=== PATIENT | male | born 1980 | race Caucasian/White ===

== ENCOUNTER 2017-06-13 06:04 | Inpatient (IN) | payer OTHER ==
[2017-06-13] VITALS (17 sets, daily range): BP systolic 103–148; BP diastolic 68–107
[~2017-06-13] VITALS: Ht 152.4 cm; Wt 56.7 kg
[~2017-06-13 06:04] MED LIST: BUPROPION; HCTZ PO; LOPRESSOR
[2017-06-13 06:40] LABS: ABSOLUTE BASOPHILS 0.1 thou/uL (0.0-0.2); ABSOLUTE LYMPHOCYTES 1.6 thou/uL (0.8-5.3); ABSOLUTE MONOCYTES 0.5 thou/uL (0.0-1.2); ABSOLUTE NEUTROPHILS 8.6 thou/uL (1.6-8.1); BASOPHILS 1.1 %; EOSINOPHILS 0.5 %; HEMATOCRIT 46.9 % (42.0-52.0); HEMOGLOBIN 15.6 gm/dL (14.0-18.0); LYMPHOCYTES 14.9 %; MCH 29.4 pg (26.0-34.0); MCHC 33.2 g/dL (28.0-37.0); MCV 88.5 fL (80.0-100.0); MONOCYTES 4.8 %; MPV 8.7 fl. (7.2-11.1); NUCLEATED RBCS 0 /100WBC; PLATELET COUNT* 437 thou/uL (150-400); POLYS 78.7 %; RBC 5.29 mil/uL (4.50-6.00); RDW-CV 12.5 % (10.5-14.5)
[2017-06-13 06:57] LABS: ALBUMIN 3.8 g/dL (3.4-5.0); ALKALINE PHOSPHATASE 118 U/L (46-116); AMYLASE 372 U/L (25-115); ANION GAP 18 mmol/L (7-16); BUN 24 mg/dL (7-18); CALCIUM 9.6 mg/dL (8.5-10.1); CHLORIDE 84 mmol/L (98-107); CO2 22 mmol/L (21-32); CREATININE 1.3 mg/dL (0.6-1.3); MAGNESIUM 1.8 mg/dL (1.8-2.4); POTASSIUM 4.4 mmol/L (3.5-5.1); SGOT 30 U/L (15-37); SGPT 52 U/L (30-65); SODIUM 124 mmol/L (136-145); TOTAL BILIRUBIN 0.4 mg/dL (<0.1-1.0); TOTAL PROTEIN 7.8 g/dL (6.4-8.2); TROPONIN-I LEVEL <0.06 ng/mL (<0.06)
[2017-06-13 07:08] LABS: LIPASE 6987 U/L (73-393)
[2017-06-13 07:10] LABS: GLUCOSE 888 mg/dL (70-99)
[2017-06-13 07:25] LABS: BE -7.6 mmol/L (-2 to +3); pH 7.541 (7.340-7.450)
[2017-06-13 07:26] LABS: SALICYLATE 3.4 mg/dL (2.8-20.0)
[2017-06-13 07:26] LABS: HCO3 11.1 mmol/L (22.0-26.0); PCO2 < 17.0 mmHg (35.0-45.0); PO2 125.9 mmHg (75.0-100.0)
[2017-06-13 07:29] LABS: ACETAMINOPHEN < 2 ug/mL (10-30); ALCOHOL < 10 mg/dL (<10)
[2017-06-13 07:41] LABS: AMP/METHAMP POSITIVE (Negative); BARBITURATES Negative (Negative); BENZODIAZEPINES Negative (Negative); COCAINE Negative (Negative); METHADONE Negative (Negative); OPIATES POSITIVE (Negative); PCP Negative (Negative); THC Negative (Negative); URINE BLOOD NEGATIVE (Negative); URINE CLARITY CLEAR; URINE COLOR YELLOW; URINE GLUCOSE-RANDOM 3+ (Negative); URINE LEUKOCYTES-REFLEX NEGATIVE (Negative); URINE NITRITE-REFLEX NEGATIVE (Negative); URINE PROTEIN NEGATIVE (Negative); URINE SPECIFIC GRAVITY <= 1.005 (1.005-1.030); URINE UROBILINOGEN 0.2 E.U./dl (0.2-1.0)
[2017-06-13 07:42] LABS: URINE KETONES 3+ (Negative)
[2017-06-13 07:44] LABS: ACETEST (KETONE CONFIRMATORY) Large (Negative); URINE BILIRUBIN NEGATIVE (Negative)
[2017-06-13 09:05] LABS: ABSOLUTE BASOPHILS 0.1 thou/uL (0.0-0.2); ABSOLUTE LYMPHOCYTES 1.5 thou/uL (0.8-5.3); ABSOLUTE MONOCYTES 0.4 thou/uL (0.0-1.2); ABSOLUTE NEUTROPHILS 6.4 thou/uL (1.6-8.1); BASOPHILS 0.7 %; EOSINOPHILS 0.3 %; HEMATOCRIT 40.4 % (42.0-52.0); HEMOGLOBIN 13.8 gm/dL (14.0-18.0); LYMPHOCYTES 18.1 %; MCH 29.4 pg (26.0-34.0); MCHC 34.2 g/dL (28.0-37.0); MCV 85.9 fL (80.0-100.0); MONOCYTES 4.8 %; MPV 8.4 fl. (7.2-11.1); NUCLEATED RBCS 0 /100WBC; PLATELET COUNT* 375 thou/uL (150-400); POLYS 76.1 %; WBC 8.4 thou/uL (4.0-11.0)
[2017-06-13 09:22] LABS: ALBUMIN 3.1 g/dL (3.4-5.0); CALCIUM 7.8 mg/dL (8.5-10.1); CREATININE 1.1 mg/dL (0.6-1.3); MAGNESIUM 1.4 mg/dL (1.8-2.4); PHOSPHORUS* 3.1 mg/dL (2.5-4.9); POTASSIUM 4.5 mmol/L (3.5-5.1)
--- NOTE | 2017-06-13 11:06 | EKG ---
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: [place] : 1980 Requested By: Rene Nichols Order Number: [id number] : Luciano Garcia Measurements Intervals [place] Rate: 80 P: 77 FL: 148 QRS: 57 QRSD: 86 T: 72 QT: 387 QTc: 447 Interpretive Statements Sinus arrhythmia Probable left atrial enlargement Compared to ECG 09/01/2010 17:43:57 Sinus rhythm no longer present Electronically Signed On 06-13-2017 11:06:28 PRODUCT DEVELOPMENT COORDINATOR by Luciano Garcia [email or web address] <ELECTRONICALLY SIGNED> By: Luciano Garcia MD, [facility] 06/13/17 1106 0735 [id number] Luciano Garcia MD, [facility] /EPI
[2017-06-13 13:55] LABS: CALCIUM 7.8 mg/dL (8.5-10.1); CREATININE 0.8 mg/dL (0.6-1.3); POTASSIUM 3.6 mmol/L (3.5-5.1)
[2017-06-13 13:58] LABS: ALBUMIN 2.9 g/dL (3.4-5.0); MAGNESIUM 1.6 mg/dL (1.8-2.4); PHOSPHORUS* 4.1 mg/dL (2.5-4.9)
[2017-06-13 16:08] LABS: INFLUENZA A ANTIGEN None Detected (None Detect)
[2017-06-13 16:09] LABS: INFLUENZA B ANTIGEN None Detected (None Detect)
[2017-06-13 16:24] LABS: HDL CHOLESTEROL 50 mg/dL (>40); TRIGLYCERIDE 257 mg/dL (<150)
[2017-06-13 17:12] LABS: CREATININE 0.8 mg/dL (0.6-1.3); POTASSIUM 4.1 mmol/L (3.5-5.1)
[2017-06-13 17:15] LABS: ALBUMIN 2.9 g/dL (3.4-5.0); MAGNESIUM 2.2 mg/dL (1.8-2.4); PHOSPHORUS* 4.1 mg/dL (2.5-4.9)
[2017-06-13 20:55] LABS: CALCIUM 7.4 mg/dL (8.5-10.1); CREATININE 0.8 mg/dL (0.6-1.3); POTASSIUM 4.2 mmol/L (3.5-5.1)
[2017-06-13 21:11] LABS: GLYCOHEMOGLOBIN (HGB A1C) 15.3 % (4.8-5.6)
[2017-06-13 22:12] LABS: LDL (DIRECT) CHOL 77 mg/dL (0-99)
[2017-06-14] VITALS (19 sets, daily range): BP systolic 90–113; BP diastolic 54–79
[2017-06-14 01:32] LABS: CALCIUM 7.1 mg/dL (8.5-10.1); CREATININE 0.7 mg/dL (0.6-1.3); POTASSIUM 4.2 mmol/L (3.5-5.1)
[2017-06-14 04:49] LABS: BE -4.7 mmol/L (-2 to +3); HCO3 20.4 mmol/L (22.0-26.0); PCO2 38.2 mmHg (35.0-45.0); PO2 101.8 mmHg (75.0-100.0); pH 7.346 (7.340-7.450)
[2017-06-14 05:22] LABS: HEMATOCRIT 37.8 % (42.0-52.0); HEMOGLOBIN 12.6 gm/dL (14.0-18.0); MCH 28.8 pg (26.0-34.0); MCHC 33.3 g/dL (28.0-37.0); MCV 86.6 fL (80.0-100.0); MPV 8.2 fl. (7.2-11.1); RBC 4.37 mil/uL (4.50-6.00); RDW-CV 12.8 % (10.5-14.5); WBC 7.1 thou/uL (4.0-11.0)
[2017-06-14 05:56] LABS: ALBUMIN 2.2 g/dL (3.4-5.0); CALCIUM 6.8 mg/dL (8.5-10.1); CREATININE 0.7 mg/dL (0.6-1.3); MAGNESIUM 1.7 mg/dL (1.8-2.4); TOTAL BILIRUBIN 0.2 mg/dL (<0.1-1.0); TOTAL PROTEIN 4.5 g/dL (6.4-8.2)
[2017-06-14 05:58] LABS: POTASSIUM 6.1 mmol/L (3.5-5.1)
[2017-06-14 09:38] LABS: ALBUMIN 2.5 g/dL (3.4-5.0); CALCIUM 7.5 mg/dL (8.5-10.1); CREATININE 0.7 mg/dL (0.6-1.3); MAGNESIUM 1.8 mg/dL (1.8-2.4); PHOSPHORUS* 2.9 mg/dL (2.5-4.9)
[2017-06-14 09:41] LABS: POTASSIUM 4.3 mmol/L (3.5-5.1)
[2017-06-14 13:02] LABS: ALBUMIN 2.3 g/dL (3.4-5.0); CALCIUM 7.5 mg/dL (8.5-10.1); CREATININE 0.6 mg/dL (0.6-1.3); MAGNESIUM 2.5 mg/dL (1.8-2.4); POTASSIUM 4.3 mmol/L (3.5-5.1)
[2017-06-15] VITALS (8 sets, daily range): BP systolic 85–112; BP diastolic 58–70
[2017-06-15 05:09] LABS: HEMATOCRIT 36.3 % (42.0-52.0); HEMOGLOBIN 12.6 gm/dL (14.0-18.0); MCH 29.5 pg (26.0-34.0); MCHC 34.6 g/dL (28.0-37.0); MPV 8.5 fl. (7.2-11.1); RBC 4.27 mil/uL (4.50-6.00); RDW-CV 12.4 % (10.5-14.5); WBC 6.2 thou/uL (4.0-11.0)
[2017-06-15 05:46] LABS: ALKALINE PHOSPHATASE 57 U/L (46-116); ANION GAP 6 mmol/L (7-16); BUN 6 mg/dL (7-18); CALCIUM 7.6 mg/dL (8.5-10.1); CHLORIDE 107 mmol/L (98-107); CHOLESTEROL 82 mg/dL (<200); CO2 27 mmol/L (21-32); CREATININE 0.6 mg/dL (0.6-1.3); GLUCOSE 69 mg/dL (70-99); HDL CHOLESTEROL 35 mg/dL (>40); LDL CHOLESTEROL 41 mg/dL (<100); LIPASE 1210 U/L (73-393); MAGNESIUM 1.7 mg/dL (1.8-2.4); POTASSIUM 3.6 mmol/L (3.5-5.1); SGOT 36 U/L (15-37); SGPT 39 U/L (30-65); SODIUM 140 mmol/L (136-145); TC:HDL 2.3 Ratio (Not establshd); TOTAL BILIRUBIN 0.1 mg/dL (<0.1-1.0); TOTAL PROTEIN 4.7 g/dL (6.4-8.2); TRIGLYCERIDE 31 mg/dL (<150); VLDL 6 mg/dL (<40)
[2017-06-15 05:48] LABS: SERUM ASSESSMENT Clear
[2017-06-16] VITALS: BP 106/66
[2017-06-16 03:57] LABS: ABSOLUTE BASOPHILS 0.1 thou/uL (0.0-0.2); ABSOLUTE EOSINOPHILS 0.1 thou/uL (0.0-0.7); ABSOLUTE MONOCYTES 0.5 thou/uL (0.0-1.2); ABSOLUTE NEUTROPHILS 2.8 thou/uL (1.6-8.1); BASOPHILS 0.8 %; EOSINOPHILS 1.9 %; HEMATOCRIT 37.1 % (42.0-52.0); HEMOGLOBIN 12.5 gm/dL (14.0-18.0); LYMPHOCYTES 46.4 %; MCH 29.1 pg (26.0-34.0); MCHC 33.7 g/dL (28.0-37.0); MCV 86.4 fL (80.0-100.0); MONOCYTES 7.1 %; MPV 8.4 fl. (7.2-11.1); NUCLEATED RBCS 0 /100WBC; PLATELET COUNT* 327 thou/uL (150-400); POLYS 43.8 %; RBC 4.29 mil/uL (4.50-6.00); RDW-CV 12.7 % (10.5-14.5); WBC 6.4 thou/uL (4.0-11.0)
[2017-06-16 04:00] VITALS: BP 100/60
[2017-06-16 04:18] LABS: PREALBUMIN 13.4 mg/dL (18.0-35.7)
[2017-06-16 04:19] LABS: ALBUMIN 2.1 g/dL (3.4-5.0); ALKALINE PHOSPHATASE 53 U/L (46-116); ANION GAP 3 mmol/L (7-16); BUN 11 mg/dL (7-18); CALCIUM 7.9 mg/dL (8.5-10.1); CHLORIDE 106 mmol/L (98-107); CO2 30 mmol/L (21-32); CREATININE 0.7 mg/dL (0.6-1.3); GLUCOSE 147 mg/dL (70-99); LIPASE 761 U/L (73-393); MAGNESIUM 1.5 mg/dL (1.8-2.4); POTASSIUM 3.8 mmol/L (3.5-5.1); SGOT 34 U/L (15-37); SGPT 46 U/L (30-65); SODIUM 139 mmol/L (136-145); TOTAL PROTEIN 4.8 g/dL (6.4-8.2)
[2017-06-16 04:21] LABS: TOTAL BILIRUBIN < 0.1 mg/dL (<0.1-1.0)
[2017-06-16 08:00] VITALS: BP 88/58
[2017-06-16 10:43] VITALS: BP 88/58
[2017-06-16] MEDS ORDERED: HUMULIN R100 UNIT/M SUBQ ×2 (13:51→13:54)
[2017-06-16 13:55] VITALS: BP 106/67
[2017-06-16 14:07] VITALS: BP 114/73
--- NOTE | 2017-07-14 14:50 | CON ---
[address] [address] CONSULTATION Name: GARTH MEDINA Room: [address]#: [id number] Admission: 06/13/17 Attend Phys: Nona Hernandez MD Discharge: 06/16/17 Date of : 78 Report #: [id number] THIS REPORT FOR: //name// CC: [facility] physician/PCP Nona Hernandez DICTATED BY: Nel Tang [facility] DATE OF SERVICE: 06/14/2017 The patient does not have a PCP. Please note at the time of this dictation, the patient was seen and physically examined by myself. REASON FOR CONSULTATION: Abdominal pain and pancreatitis. HISTORY OF PRESENT ILLNESS: This is a 36-year-old male who presented to the emergency room with having waxing and waning abdominal pain over the last couple of weeks, which he states even it would get better than worse and back and forth. He has also been noticing over the past month that he has had increasing thirst and more urinary frequency and he has lost about 15-20 pounds over the course of the past month to 2 months. All of this has been unintentional as well. The patient states this is his second bout of pancreatitis with his last bout being 4 years ago when he was hospitalized at [facility]. He states prior to that he was drinking significantly heavier, but since that time, he had decreased the amount that he was drinking and then quit drinking altogether 1 year ago. Currently, he denies any nausea or vomiting. He is still having some abdominal discomfort. He states his bowels move usually daily, soft and formed with no evidence of any bright red blood or any melena noted. This is a 36-year-old male who presented to hospital with DKA. The patient also found to have elevated lipase in range of 6900. The liver enzymes appeared normal and per imaging, there was no evidence of choledocholithiasis. The patient reports that he has had previous episodes of pancreatitis. He has history of alcohol abuse, but reports that he has not been drinking for almost a year. The patient continues to have abdominal pain, but his lipase has diminished to almost half. We will continue IV hydration and pain control. I would recommend an EUS as this is patient's second episode of pancreatitis. ALLERGIES: [place] [address] CONSULTATION Name: GARTH MEDINA Room: [address]#: [id number] Admission: 06/13/17 Attend Phys: Nona Hernandez MD Discharge: 06/16/17 Date of : 78 Report #: [id number] MEDICATIONS FROM HOME: None. PAST MEDICAL HISTORY: History of hypertension, depression, questionable seizure in 2009, and history of pancreatitis. FAMILY HISTORY: Negative for any GI or female cancers. SOCIAL HISTORY: Currently denies any alcohol use or tobacco use; however, on his urine drug screen, it did show that he was positive for opioids, which were not indicated on his medication list as well as meth/amphetamine, but negative for alcohol. REVIEW OF SYSTEMS: Twelve-point review of systems is essentially negative except what is mentioned in the HPI. PHYSICAL EXAMINATION: VITAL SIGNS: Temperature 36.4, pulse 87, respirations 10, and blood pressure 90/63. HEART: Regular rate and rhythm. LUNGS: Clear. ABDOMEN: Soft. Positive bowel sounds in all 4 quadrants with no masses noted; however, tenderness noted in the left upper quadrant. LABS: Hemoglobin currently is 12.6, hematocrit 37.8, white count is 7.1, and platelet is 344. Magnesium was 1.8, calcium is 7.5. Sodium 138, potassium 4.3, yesterday on admission was 6.1 potassium, chloride is 108, CO2 of 24, BUN is 9, creatinine 0.7, GFR is 127, glucose is 167 currently, but on admission he was 888. Lipase on admission was 6987, he is down to 2778. LFTs are all completely normal. CT on admission showed some calcified stones involving at the head of the pancreas. There was mild dilatation of the pancreatic duct and evidence for calcified stones within the distal common duct just proximal to the ampule. The possibility of a mild distal , pancreatic duct obstruction should be considered. He had a lot of moderate stool throughout the colon suggesting constipation. Pancreas showed several calcifications over the pancreatic head with mild generalized prominence of the pancreatic duct, questionable to be a tiny calcified stone in the distal . Ultrasound then done today. Based off of those findings, it showed liver to be normal. Gallbladder was normal in size, no wall thickness. No gallstones were noted. Negative Galdamez sign. No biliary dilatation is seen and no obvious choledocholithiasis is noted and the common bile duct measures 3 mm. The pancreas demonstrates small punctuated calcifications at the head, no discrete mass. The pancreatic duct is dilated at 5 mm. IMPRESSION: 1. Abdominal pain. 2. Pancreatitis, second bout. [address] [address] CONSULTATION Name: GARTH MEDINA Room: [address] IN [facility]#: [id number] Admission: 06/13/17 Attend Phys: Nona Hernandez MD Discharge: 06/16/17 Date of : 78 Report #: [id number] 3. Newly diagnosed diabetes. 4. History of alcohol abuse, last alcoholic drink was 1 year ago. PLAN: 1. Increase his LR to 250 mL an hour. 2. Clear liquid diet. 3. Likely will need an EUS as an outpatient to fully evaluate his pancreas. 4. Further recommendations to be made once Dr. Malloy sees the patient later today. Thank you for allowing us to participate in this patient's care. Please do not hesitate to call with any questions in regard to this consult. <ELECTRONICALLY SIGNED> By: Telly Malloy MD 07/14/17 1450 1153 [id number] Malloy MD /nt
--- NOTE | 2017-07-14 14:50 | CON ---
[address] [address] CONSULTATION Name: GARTH MEDINA Room: [address]R#: [id number] Admission: 06/13/17 Attend Phys: Nona Hernandez MD Discharge: 06/16/17 Date of : 78 Report #: [id number] THIS REPORT FOR: //name// CC: [facility] physician/PCP Nona Hernandez DATE OF SERVICE: 06/14/2017 ADDENDUM REASON FOR CONSULT: Pancreatitis. This is a 36-year-old male who presented to hospital with DKA. The patient also found to have elevated lipase in range of 6900. The liver enzymes appeared normal and per imaging, there was no evidence of choledocholithiasis. The patient reports that he has had previous episodes of pancreatitis. He has history of alcohol abuse, but reports that he has not been drinking for almost a year. The patient continues to have abdominal pain, but his lipase has diminished to almost half. We will continue IV hydration and pain control. I would recommend an EUS as this is patient's second episode of pancreatitis. <ELECTRONICALLY SIGNED> By: Telly Malloy MD 07/14/17 1450 1611 [id number] Malloy MD /nt
== END 2017-06-16 14:54 | disposition home or self-care (01) | DRG 438 ==
LOC: M.ERS 06:04 → M.3W 07:42 → M.ICU 07:42 → M.TBA-ER 07:42 → M.ICU 08:29 → M.3W 06-14 19:23
PROVIDERS: Emergency Medicine; Internal Medicine; Internal Medicine Gastroenterology; Personal Emergency Response Attendant; ADMIT Internal Medicine
DX: K85.90 Acute pancreatitis without necrosis or infection, unspecified (principal); E11.10 Type 2 diabetes mellitus with ketoacidosis without coma; E43 Unspecified severe protein-calorie malnutrition; E11.00 Type 2 diabetes mellitus with hyperosmolarity without nonketotic hyperglycemic-hyperosmolar coma (NKHHC); I10 Essential (primary) hypertension; K86.1 Other chronic pancreatitis; F32.9 Major depressive disorder, single episode, unspecified; F17.210 Nicotine dependence, cigarettes, uncomplicated; F19.10 Other psychoactive substance abuse, uncomplicated; Z68.24 Body mass index [BMI] 24.0-24.9, adult

== ENCOUNTER 2017-11-10 15:56 | Emergency (ER) | payer OTHER ==
[~2017-11-10] VITALS: Ht 170.2 cm; Wt 61.2 kg
[~2017-11-10 15:56] MED LIST changes: +HUMULIN R100 UNIT/M SUBQ
[2017-11-10 16:20] LABS: URINE BILIRUBIN NEGATIVE (Negative); URINE BLOOD NEGATIVE (Negative); URINE CLARITY CLEAR; URINE COLOR YELLOW; URINE GLUCOSE-RANDOM 3+ (Negative); URINE KETONES NEGATIVE (Negative); URINE LEUKOCYTES-REFLEX NEGATIVE (Negative); URINE NITRITE-REFLEX NEGATIVE (Negative); URINE PROTEIN NEGATIVE (Negative); URINE SPECIFIC GRAVITY <= 1.005 (1.005-1.030); URINE UROBILINOGEN 0.2 E.U./dl (0.2-1.0)
[2017-11-10 16:23] LABS: ABSOLUTE BASOPHILS 0.1 thou/uL (0.0-0.2); ABSOLUTE EOSINOPHILS 0.1 thou/uL (0.0-0.7); ABSOLUTE LYMPHOCYTES 1.1 thou/uL (0.8-5.3); ABSOLUTE MONOCYTES 0.6 thou/uL (0.0-1.2); ABSOLUTE NEUTROPHILS 9.3 thou/uL (1.6-8.1); BASOPHILS 0.6 %; EOSINOPHILS 0.5 %; HEMATOCRIT 42.4 % (42.0-52.0); LYMPHOCYTES 10.2 %; MCHC 33.1 g/dL (28.0-37.0); MCV 87.6 fL (80.0-100.0); MONOCYTES 5.6 %; MPV 7.9 fl. (7.2-11.1); NUCLEATED RBCS 0 /100WBC; PLATELET COUNT* 337 thou/uL (150-400); POLYS 83.1 %; RBC 4.84 mil/uL (4.50-6.00); RDW-CV 13.3 % (10.5-14.5); WBC 11.2 thou/uL (4.0-11.0)
[2017-11-10 16:30] LABS: CREATININE 0.9 mg/dL (0.6-1.3); POTASSIUM 3.8 mmol/L (3.5-5.1)
[2017-11-10 16:35] LABS: ALBUMIN 3.2 g/dL (3.4-5.0); TOTAL BILIRUBIN 0.4 mg/dL (<0.1-1.0); TOTAL PROTEIN 6.7 g/dL (6.4-8.2)
[2017-11-10 17:09] LABS: AMP/METHAMP POSITIVE (Negative); BARBITURATES Negative (Negative); BENZODIAZEPINES Negative (Negative); COCAINE Negative (Negative); METHADONE Negative (Negative); OPIATES Negative (Negative); PCP Negative (Negative); THC Negative (Negative)
[2017-11-10] MEDS ORDERED: BENTYL 20 MG TA20 M1 PO (17:35)
[2017-11-10 17:39] VITALS: BP 108/68
== END 2017-11-10 17:39 | disposition home or self-care (01) ==
LOC: M.ERS 15:56
PROVIDERS: Nurse Practitioner Family
DX: R10.9 Unspecified abdominal pain (principal); G89.29 Other chronic pain; I10 Essential (primary) hypertension; F32.9 Major depressive disorder, single episode, unspecified